=== PATIENT | female | born 1955 | race Caucasian/White ===

== ENCOUNTER → 2025-06-15 | Outpatient (CLI) | payer OTHER ==
[2025-06-16 12:06] LABS: Stool Occult Bld Immuno 1 Negative (NEGATIVE)
== END ==
LOC: LAB SHORT 14:10 → LAB 14:10
PROVIDERS: Physician Assistant
DX: Z12.11 Encounter for screening for malignant neoplasm of colon (principal)
CPT/HCPCS: G0328